=== PATIENT | male | born 1995 | race Caucasian/White ===

== ENCOUNTER 2023-09-09 11:13 | Emergency (ER) | payer SELFPAY ==
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
[2023-09-09] MEDS ORDERED: dexAMETHasone 10 MG/ML VIAL ONE (12:05)
[2023-09-09] MEDS ORDERED: KETOROLAC 30 MG/ML INJ ONE (12:05)
[2023-09-09 12:40] VITALS: BP 148/104; TEMP 97.8; O2SAT 100
== END 2023-09-09 12:32 | disposition home or self-care (01) ==
LOC: ER 11:13
DX: S39.012A Strain of muscle, fascia and tendon of lower back, initial encounter (principal)
CPT/HCPCS: 96372; 99284; J1100